=== PATIENT | male | born 1975 | race Caucasian/White ===

== ENCOUNTER 2023-11-23 10:18 | Outpatient (CLI) | payer BC | END 2023-11-23 10:19 | disposition home or self-care (01) | LOC: SCSRAD 10:18 | PROVIDERS: ATTEND Family Medicine | DX: C64.1 Malignant neoplasm of right kidney, except renal pelvis (principal) | CPT/HCPCS: 71046 ==

== ENCOUNTER 2024-09-29 05:17 | Inpatient (IN) | payer BC ==
[2024-09-29 05:49] LABS: #Basophils 0.06 10x3/uL (0.0-0.2); %Basophils 0.8 % (0.0-1.0); %Eosinophils 2.8 % (0.0-10.0); %Lymphocytes 30.6 % (21.0-51.0); %Monocytes 5.1 % (0.0-10.0); %Neutrophils 60.4 % (42.0-75.0); Hemoglobin 16.1 g/dL (14.0-18.0); Mean Corpuscular HGB CONC 34.3 g/dL (32.0-36.0); Mean Corpuscular Hemoglobin 31.1 pg (27.0-31.0); Mean Corpuscular Volume 90.9 fL (78.0-98.0); Platelet Count 246 10x3/uL (130-400); RBC Distribution Width 14.2 % (11.5-14.5); Red Blood Cell (RBC) Count 5.17 mill/uL (4.70-6.10)
[2024-09-29 05:59] LABS: ALT (SGPT) 22 U/L (8-55); AST (SGOT) 22 U/L (5-34); Alkaline Phosphatase 74 U/L (40-110); Anion Gap 14 mmol/L (10-20); BUN (Urea Nitrogen) 8 mg/dL (8.9-20.6); Bilirubin, Total 0.2 mg/dL (0.2-1.2); Calc. Creatinine Clearance 0 mL/min (70-130); Carbon Dioxide 23 mmol/L (22-29); Chloride 102 mmol/L (98-107); Estimated GFR 109; Globulin 3.9 g/dL (2.4-3.5); Glucose 153 mg/dL (70-105); Protein, Total 7.9 g/dL (6.0-8.3); Sodium 135 mmol/L (136-145)
[2024-09-29] MEDS ORDERED: Aspirin Chewable 81 MG TAB ONE ×2 (06:56→06:58)
[2024-09-29] MEDS ORDERED: Nitroglycerin 0.4 MG TAB (25 Tab Bottle) SL PRN ×2 (07:46→12:36)
[2024-09-29] MEDS ORDERED: Acetaminophen 325 MG TAB PO PRN (07:46)
[2024-09-29] MEDS ORDERED: Iopamidol 370 76% 100 ML VIAL ONE (08:43)
[2024-09-29 08:51] LABS: Cardiac Risk 6.8 (Less than 4.5); Cholesterol 218 mg/dl (< 200 Desired); HDL Cholesterol 32 mg/dL (>60 Neg Risk); Triglycerides 632 mg/dL (Less than 150)
[2024-09-29] MEDS ORDERED: Enoxaparin 40 MG (0.4 mL) SYRINGE SC SCH (09:00)
[2024-09-29 09:55] LABS: Troponin I 0.359 ng/mL (< 0.028)
[2024-09-29] MEDS: Enoxaparin 100 MG (1 mL) SYRINGE SC SCH (10:16)
[2024-09-29] MEDS: Famotidine 20 MG TAB PO SCH (10:17)
[2024-09-29] MEDS: Nicotine 14 MG PATCH TD SCH (10:17)
[2024-09-29] MEDS ORDERED: Communication Order-Pharmacy FS SCH (11:00)
[2024-09-29] MEDS ORDERED: Verapamil 5 MG/2 ML VIAL ONE (11:06)
[2024-09-29] MEDS ORDERED: fentaNYL 50 mcg/mL 1 mL Vial ONE (11:06)
[2024-09-29] MEDS ORDERED: Midazolam HCl 2 mg/2 ml Vial ONE (11:06)
[2024-09-29] MEDS ORDERED: Nitroglycerin 50 MG/250 ML BOT 250 ML ONE (11:06)
[2024-09-29] MEDS ORDERED: Heparin 10,000 UNITS/ 10 ML VIAL ONE (11:06)
[2024-09-29 11:57] LABS: Troponin I 0.513 ng/mL (< 0.028)
[2024-09-29] MEDS ORDERED: Acetaminophen/Codeine 30-300mg Tablet PO PRN ×2 (12:36)
[2024-09-29] MEDS ORDERED: Sodium Chloride 0.9% 200 ML IV PRN (12:36)
[2024-09-29] MEDS ORDERED: Metoprolol Tartrate 25 MG TAB PO SCH (12:40)
[2024-09-29 13:50] LABS: Hematocrit 45.9 % (42.0-52.0); Hemoglobin 15.6 g/dL (14.0-18.0); Platelet Count 237 10x3/uL (130-400)
[2024-09-29] MEDS: Metoprolol Tartrate 25 MG TAB PO SCH ×2 (14:02→21:08)
[2024-09-29] MEDS: Nitroglycerin 2% Ointment 1 INCH/1 GM Packet TOP SCH (15:30)
[2024-09-29] MEDS ORDERED: Enoxaparin 100 MG (1 mL) SYRINGE SC SCH (21:00)
[2024-09-29] MEDS: Atorvastatin Calcium 40 MG TAB PO SCH (21:08)
[2024-09-29] MEDS: Heparin 25,000 units/D5W 500 ML IVPB SCH (21:54)
[2024-09-29] MEDS: Heparin 10,000 UNITS/ 10 ML VIAL SLOW IVP SCH (21:55)
[2024-09-30 05:04] LABS: Hemoglobin A1c 5.3 % (4.0-6.0)
[2024-09-30 05:05] LABS: Anion Gap 11 mmol/L (10-20); BUN (Urea Nitrogen) 8 mg/dL (8.9-20.6); Calc. Creatinine Clearance 175 mL/min (70-130); Calcium 8.5 mg/dL (7.8-10.44); Carbon Dioxide 24 mmol/L (22-29); Chloride 106 mmol/L (98-107); Estimated GFR 115; Glucose 107 mg/dL (70-105); Potassium 3.9 mmol/L (3.5-5.1); Sodium 137 mmol/L (136-145)
[2024-09-30] MEDS: Aspirin Chewable 81 MG TAB PO SCH (08:40)
[2024-09-30] MEDS: Ezetimibe 10 MG TAB PO SCH (08:40)
[2024-09-30] MEDS: Losartan 25 MG TAB PO SCH (08:40)
[2024-10-01 02:11] LABS: #Basophils 0.05 10x3/uL (0.0-0.2); %Basophils 0.6 % (0.0-1.0); %Eosinophils 4.1 % (0.0-10.0); %Monocytes 6.3 % (0.0-10.0); %Neutrophils 44.8 % (42.0-75.0); Hematocrit 44.1 % (42.0-52.0); Hematocrit 45.5 % (42.0-52.0); Hemoglobin 14.7 g/dL (14.0-18.0); Hemoglobin 15.3 g/dL (14.0-18.0); Mean Corpuscular HGB CONC 33.3 g/dL (32.0-36.0); Mean Corpuscular Hemoglobin 31.4 pg (27.0-31.0); Mean Corpuscular Volume 94.2 fL (78.0-98.0); Mean Platelet Volume 9.4 fL (7.4-10.4); Platelet Count 228 10x3/uL (130-400); Platelet Count 234 10x3/uL (130-400); RBC Distribution Width 14.3 % (11.5-14.5); Red Blood Cell (RBC) Count 4.68 mill/uL (4.70-6.10)
[2024-10-01 03:15] LABS: Anion Gap 16 mmol/L (10-20); BUN (Urea Nitrogen) 9 mg/dL (8.9-20.6); Calc. Creatinine Clearance 149 mL/min (70-130); Calcium 8.5 mg/dL (7.8-10.44); Carbon Dioxide 18 mmol/L (22-29); Chloride 107 mmol/L (98-107); Estimated GFR 109; Glucose 118 mg/dL (70-105); Potassium 3.8 mmol/L (3.5-5.1); Sodium 137 mmol/L (136-145)
[2024-10-01] MEDS: BENZOCAINE/MENTHOL/ZINC CHLOR 5.1 GM TUBE TOP PRN (11:29)
[2024-10-01 12:31] LABS: Hematocrit 45.8 % (42.0-52.0); Hemoglobin 15.2 g/dL (14.0-18.0); Platelet Count 230 10x3/uL (130-400)
[2024-10-02 04:55] LABS: #Basophils 0.06 10x3/uL (0.0-0.2); %Basophils 0.9 % (0.0-1.0); %Lymphocytes 40.9 % (21.0-51.0); %Monocytes 6.8 % (0.0-10.0); %Neutrophils 47.3 % (42.0-75.0); Hematocrit 41.8 % (42.0-52.0); Hemoglobin 14.1 g/dL (14.0-18.0); Mean Corpuscular HGB CONC 33.7 g/dL (32.0-36.0); Mean Corpuscular Hemoglobin 30.9 pg (27.0-31.0); Mean Corpuscular Volume 91.7 fL (78.0-98.0); Mean Platelet Volume 9.5 fL (7.4-10.4); Platelet Count 237 10x3/uL (130-400); RBC Distribution Width 14.2 % (11.5-14.5); Red Blood Cell (RBC) Count 4.56 mill/uL (4.70-6.10)
[2024-10-02 05:12] LABS: Anion Gap 12 mmol/L (10-20); BUN (Urea Nitrogen) 8 mg/dL (8.9-20.6); Calc. Creatinine Clearance 161 mL/min (70-130); Calcium 8.3 mg/dL (7.8-10.44); Carbon Dioxide 25 mmol/L (22-29); Chloride 108 mmol/L (98-107); Estimated GFR 112; Glucose 97 mg/dL (70-105); Potassium 3.8 mmol/L (3.5-5.1); Sodium 141 mmol/L (136-145)
[2024-10-03 03:53] LABS: #Basophils 0.04 10x3/uL (0.0-0.2); %Basophils 0.5 % (0.0-1.0); %Eosinophils 4.6 % (0.0-10.0); %Monocytes 6.6 % (0.0-10.0); Hematocrit 40.2 % (42.0-52.0); Hemoglobin 13.4 g/dL (14.0-18.0); Mean Corpuscular HGB CONC 33.3 g/dL (32.0-36.0); Mean Corpuscular Hemoglobin 30.9 pg (27.0-31.0); Mean Corpuscular Volume 92.8 fL (78.0-98.0); Platelet Count 222 10x3/uL (130-400); RBC Distribution Width 14.1 % (11.5-14.5); Red Blood Cell (RBC) Count 4.33 mill/uL (4.70-6.10)
[2024-10-03 04:02] LABS: INR-International Normal Ratio 0.9; Prothrombin Time 12.4 sec (12.0-14.7)
[2024-10-03 04:03] LABS: PTT 67.6 sec (22.9-36.1)
[2024-10-03 04:06] LABS: Anion Gap 11 mmol/L (10-20); BUN (Urea Nitrogen) 9 mg/dL (8.9-20.6); Calc. Creatinine Clearance 163 mL/min (70-130); Calcium 8.4 mg/dL (7.8-10.44); Carbon Dioxide 25 mmol/L (22-29); Chloride 108 mmol/L (98-107); Estimated GFR 112; Glucose 98 mg/dL (70-105); Potassium 3.8 mmol/L (3.5-5.1); Sodium 140 mmol/L (136-145)
[2024-10-03] MEDS: guaiFENesin/DM ER PO SCH (09:03)
[2024-10-03] MEDS: Loratadine 10 MG TAB PO PRN (09:04)
[2024-10-03 12:58] LABS: Hematocrit 43.5 % (42.0-52.0); Hemoglobin 14.6 g/dL (14.0-18.0); Platelet Count 229 10x3/uL (130-400)
[2024-10-04] MEDS ORDERED: CABG-Clindamycin/D5W 900 MG in Premix 1 BAG IVPB SCH (00:01)
[2024-10-04 03:48] LABS: #Basophils 0.04 10x3/uL (0.0-0.2); %Basophils 0.5 % (0.0-1.0); %Eosinophils 4.5 % (0.0-10.0); %Lymphocytes 38.9 % (21.0-51.0); %Monocytes 7.9 % (0.0-10.0); %Neutrophils 47.9 % (42.0-75.0); Hematocrit 40.5 % (42.0-52.0); Hemoglobin 13.6 g/dL (14.0-18.0); Mean Corpuscular HGB CONC 33.6 g/dL (32.0-36.0); Mean Corpuscular Hemoglobin 30.9 pg (27.0-31.0); Mean Platelet Volume 9.3 fL (7.4-10.4); Platelet Count 227 10x3/uL (130-400)
[2024-10-04 04:11] LABS: Anion Gap 10 mmol/L (10-20); BUN (Urea Nitrogen) 13 mg/dL (8.9-20.6); Calc. Creatinine Clearance 145 mL/min (70-130); Calcium 8.7 mg/dL (7.8-10.44); Carbon Dioxide 28 mmol/L (22-29); Chloride 106 mmol/L (98-107); Estimated GFR 108; Glucose 105 mg/dL (70-105); Sodium 140 mmol/L (136-145)
[2024-10-04] MEDS ORDERED: Albumin 5% 500 ML ONE (06:29)
[2024-10-04] MEDS ORDERED: EPINEPHrine 1 MG/ML VIAL ONE (06:29)
[2024-10-04] MEDS ORDERED: Dexamethasone 4 mg/ml Vial ONE (06:29)
[2024-10-04] MEDS ORDERED: Bupivacaine PF 0.5% 30 ML VIAL ONE (06:29)
[2024-10-04] MEDS ORDERED: PHENYLEPHRINE-NS 100 MCG/ML 10 ML SYRINGE ONE (06:30)
[2024-10-04] MEDS ORDERED: Heparin 10,000 UNITS/1 ML VIAL 30,000 UNITS in Sodium Chloride 0.9% 1,000 ML FS SCH (06:45)
[2024-10-04] MEDS ORDERED: Lidocaine 1% MPF 2 ML VIAL ONE (07:03)
[2024-10-04] MEDS ORDERED: Midazolam HCl 2 mg/2 ml Vial ONE ×2 (07:03→10:12)
[2024-10-04] MEDS ORDERED: Clindamycin/D5W 900 mg/50 ml Premix Bag ONE (07:10)
[2024-10-04] MEDS ORDERED: Lidocaine 2% PF 5 ML VIAL ONE (07:30)
[2024-10-04] MEDS ORDERED: Rocuronium Bromide 10 MG/ML (10ML VIAL) ONE ×2 (07:30→11:09)
[2024-10-04] MEDS ORDERED: Fentanyl 250 MCG/5 ML VIAL ONE ×2 (07:30→11:28)
[2024-10-04] MEDS ORDERED: PROPOFOL 20 ML ONE ×2 (07:30→11:26)
[2024-10-04] MEDS ORDERED: NOREPINEPHRINE 8 MG/250 ML-D5W 250 ML ONE (07:32)
[2024-10-04] MEDS ORDERED: Vancomycin 1 GM VIAL ONE (07:33)
[2024-10-04] MEDS ORDERED: Thrombin 5000 UNITS/5 ML VIAL ONE (07:33)
[2024-10-04] MEDS ORDERED: Protamine Sulfate 250 MG/25 ML VIAL ONE (07:33)
[2024-10-04] MEDS ORDERED: Sodium Bicarb 50 mEq/50 ML VIAL ONE (07:33)
[2024-10-04] MEDS ORDERED: Mannitol 12.5 GM/50 ML ONE (07:33)
[2024-10-04] MEDS ORDERED: Calcium Chloride 1 GM/10 ML Abboject SYRINGE ONE (07:33)
[2024-10-04] MEDS ORDERED: Lidocaine 2% PF 100 mg/5 ml Syringe ONE (07:33)
[2024-10-04] MEDS ORDERED: Heparin 5,000 UNITS/ML VIAL ONE (07:33)
[2024-10-04] MEDS ORDERED: Potassium Chloride 60 mEq (30 mL) VIAL ONE (07:33)
[2024-10-04] MEDS ORDERED: Heparin 30,000 units/30 ml VIAL ONE (07:33)
[2024-10-04] MEDS ORDERED: Cardioplegic Soln 1,000 ML BAG ONE (07:33)
[2024-10-04] MEDS ORDERED: Papaverine 60 MG/2 ML VIAL ONE ×2 (07:33→08:58)
[2024-10-04] MEDS ORDERED: Magnesium 5 GM/10 ML VIAL ONE (07:33)
[2024-10-04] MEDS ORDERED: Aminocaproic Acid 5 GM/20 ML VIAL ONE (07:33)
[2024-10-04] MEDS ORDERED: ePHEDrine Sulfate 50 MG/10 ML VIAL ONE (07:52)
[2024-10-04] MEDS ORDERED: Sodium Chloride 0.9% 100 ML ONE ×3 (10:54→12:41)
[2024-10-04] MEDS ORDERED: Insulin Regular, Human 100 UNIT/ML 10 ML VIAL ONE (11:10)
[2024-10-04] MEDS ORDERED: Esmolol 100 MG/10 ML VIAL ONE (11:28)
[2024-10-04] MEDS ORDERED: niCARdipine 25 MG/10 ML SDV ONE (11:40)
[2024-10-04] MEDS ORDERED: traMADol HCl 50 MG TAB PO PRN ×2 (12:34)
[2024-10-04] MEDS ORDERED: NOREPINEPHRINE 8 MG/250 ML-D5W 250 ML IVPB PRN (12:34)
[2024-10-04] MEDS ORDERED: Nitroglycerin 50 MG/250 ML BOT 250 ML IVPB PRN (12:34)
[2024-10-04] MEDS ORDERED: Bisacodyl 5 MG TAB PO PRN (12:34)
[2024-10-04] MEDS ORDERED: Albumin 5% 12.5 GM (250 mL) BOT IVPB PRN ×2 (12:34)
[2024-10-04] MEDS ORDERED: Promethazine HCl 25 MG/ML VIAL IM PRN (12:34)
[2024-10-04] MEDS ORDERED: Bisacodyl 10 MG SUPP PR PRN (12:34)
[2024-10-04] MEDS ORDERED: Mag-Al 1200 mg/1200 mg/30 ML UDCUP PO PRN (12:34)
[2024-10-04] MEDS ORDERED: Morphine 2 MG/ML VIAL SLOW IVP PRN (12:34)
[2024-10-04] MEDS ORDERED: Dextrose 5% in Water 1,000 ML IV PRN (13:00)
[2024-10-04] MEDS ORDERED: Glucagon 1 MG/ML KIT SC PRN (13:00)
[2024-10-04] MEDS ORDERED: Dextrose 50% Abboject 50 ML SYRINGE SLOW IVP PRN (13:00)
[2024-10-04 13:12] LABS: Actual Bicarbonate (HCO3a) 22.6 mEq/L (22-28); Base Excess (BEa) -3.8 mEq/L (-2.0 to +3.0); Calcium, Ionized (arterial) 1.15 mmol/L (1.12-1.30); Carboxyhemoglobin (COHb) 0.6 gm% (0.0-3.0); Hematocrit-ABG 39 % (42.0-52.0); Hemoglobin (Hb) 13.4 g/dL (14.0-18.0); O2 Tension (PaO2), arterial 69.9 mmHg (80.0-100.0); pH, Arterial 7.309 (7.35-7.45)
[2024-10-04 13:16] LABS: Puncture Site Arterial Line
[2024-10-04] MEDS: Ipratropium/Albuterol 3 ML NEB NEB SCH (13:17)
[2024-10-04 13:26] LABS: #Basophils 0.03 10x3/uL (0.0-0.2); %Basophils 0.3 % (0.0-1.0); %Eosinophils 0.6 % (0.0-10.0); %Lymphocytes 9.3 % (21.0-51.0); %Monocytes 5.5 % (0.0-10.0); %Neutrophils 83.6 % (42.0-75.0); Hemoglobin 12.5 g/dL (14.0-18.0); Mean Corpuscular HGB CONC 32.9 g/dL (32.0-36.0); Mean Corpuscular Volume 94.3 fL (78.0-98.0); Mean Platelet Volume 9.2 fL (7.4-10.4); Platelet Count 144 10x3/uL (130-400); RBC Distribution Width 14.2 % (11.5-14.5); Red Blood Cell (RBC) Count 4.03 mill/uL (4.70-6.10)
[2024-10-04 13:46] LABS: Calc. Creatinine Clearance 163 mL/min (70-130); Estimated GFR 112
[2024-10-04 13:47] LABS: Anion Gap 9 mmol/L (10-20); BUN (Urea Nitrogen) 11 mg/dL (8.9-20.6); Calcium 7.6 mg/dL (7.8-10.44); Carbon Dioxide 22 mmol/L (22-29); Chloride 114 mmol/L (98-107); Glucose 112 mg/dL (70-105); Potassium 3.9 mmol/L (3.5-5.1); Sodium 141 mmol/L (136-145)
[2024-10-04 13:50] LABS: PTT 30.1 sec (22.9-36.1)
[2024-10-04 14:10] LABS: INR-International Normal Ratio 1.2; Prothrombin Time 15.1 sec (12.0-14.7)
[2024-10-04] MEDS: Magnesium 2 GM/50 ML(in water) 2 GM in Premix 1 BAG IVPB SCH (14:10)
[2024-10-04] MEDS: Clindamycin/D5W 900 MG in Premix 1 BAG IVPB SCH (14:11)
[2024-10-04] MEDS: hydrALAZINE 20 MG/ML VIAL SLOW IVP PRN (14:12)
[2024-10-04] MEDS: niCARdipine 25 MG in Sodium Chloride 0.9% 250 ML 250 ML IVPB PRN (14:26)
[2024-10-04] MEDS: D5 1/2 NS w/20 mEq KCL 1,000 ML IV SCH (14:30)
[2024-10-04] MEDS: Post-Op Insulin Drip Protocol IVPB ONE (14:50)
[2024-10-04 15:51] LABS: Actual Bicarbonate (HCO3a) 20.7 mEq/L (22-28); Base Excess (BEa) -3.6 mEq/L (-2.0 to +3.0); CO2 Tension 35.1 mmHg (35.0-45.0); Calcium, Ionized (arterial) 1.09 mmol/L (1.12-1.30); Carboxyhemoglobin (COHb) 0.8 gm% (0.0-3.0); Hematocrit-ABG 41 % (42.0-52.0); O2 Tension (PaO2), arterial 75.5 mmHg (80.0-100.0); Potassium - ABG Lab 4.04 mmol/L (3.70-5.30); pH, Arterial 7.388 (7.35-7.45)
[2024-10-04 15:58] LABS: ALV-art Gradient 165.825 mmHg (0-20); Puncture Site Arterial Line
[2024-10-04] MEDS: Insulin Regular, Human 100 UNIT/ML 10 ML VIAL SC PRN (16:02)
[2024-10-04] MEDS: Sodium Bicarb 50 MEQ/50 ML Abboject 8.4% SYRINGE ONE (16:18)
[2024-10-04] MEDS: Sodium Bicarb 50 MEQ/50 ML Abboject 8.4% SYRINGE IVP SCH (16:18)
[2024-10-04] MEDS: INSULIN REGULAR IN 0.9 % NACL 100 UNITS in Premix 1 BAG IVPB SCH (16:34)
[2024-10-04] MEDS: fentaNYL 50 mcg/mL 1 mL Vial SLOW IVP PRN ×2 (16:46→23:12)
[2024-10-04] MEDS: INSULIN REGULAR IN 0.9 % NACL 100 ML ONE (16:50)
[2024-10-04] MEDS: Potassium Chloride 20 MEQ (100 mL) BAG IVPB PRN (16:53)
[2024-10-04] MEDS: HYDROcodone/Acetaminophen 5/325 mg Tablet PO PRN (18:01)
[2024-10-04] MEDS: Ondansetron PF 4 MG/2 ML Vial IVP PRN (18:15)
[2024-10-04 19:22] LABS: Hematocrit 39.9 % (42.0-52.0); Hemoglobin 13.4 g/dL (14.0-18.0)
[2024-10-04] MEDS: Famotidine/PF 20 mg/2ml Vial SLOW IVP SCH (19:35)
[2024-10-04] MEDS: Metoprolol Tartrate 25 MG TAB PO SCH (19:36)
[2024-10-04 19:42] LABS: Potassium 4.1 mmol/L (3.5-5.1)
[2024-10-04] MEDS ORDERED: Atorvastatin Calcium 20 MG TAB PO SCH (21:00)
[2024-10-04] MEDS: Transdermal Patch Removal TOP SCH (21:04)
[2024-10-05 04:37] LABS: #Basophils 0.04 10x3/uL (0.0-0.2); %Basophils 0.3 % (0.0-1.0); %Eosinophils 0.7 % (0.0-10.0); %Lymphocytes 4.7 % (21.0-51.0); %Monocytes 6.9 % (0.0-10.0); %Neutrophils 86.9 % (42.0-75.0); Hematocrit 38.3 % (42.0-52.0); Hemoglobin 12.6 g/dL (14.0-18.0); Mean Corpuscular HGB CONC 32.9 g/dL (32.0-36.0); Mean Corpuscular Hemoglobin 30.5 pg (27.0-31.0); Mean Corpuscular Volume 92.7 fL (78.0-98.0); Mean Platelet Volume 9.9 fL (7.4-10.4); Platelet Count 194 10x3/uL (130-400); RBC Distribution Width 14.6 % (11.5-14.5); Red Blood Cell (RBC) Count 4.13 mill/uL (4.70-6.10)
[2024-10-05 05:14] VITALS: BMI 32.3
[2024-10-05 05:39] LABS: Anion Gap 12 mmol/L (10-20); BUN (Urea Nitrogen) 10 mg/dL (8.9-20.6); Calc. Creatinine Clearance 193 mL/min (70-130); Calcium 7.2 mg/dL (7.8-10.44); Carbon Dioxide 19 mmol/L (22-29); Chloride 110 mmol/L (98-107); Estimated GFR 116; Glucose 110 mg/dL (70-105); Sodium 137 mmol/L (136-145)
[2024-10-05] MEDS ORDERED: diphenhydrAMINE 25 MG CAP PO PRN (07:28)
[2024-10-05] MEDS ORDERED: traMADol HCl 50 MG TAB PO PRN (07:28)
[2024-10-05] MEDS ORDERED: Artificial Tear Ophth Sol 15 ML BOT EA EYE PRN (07:28)
[2024-10-05] MEDS ORDERED: Mineral Oil ENEMA PR PRN (07:28)
[2024-10-05] MEDS: Magnesium 2 GM/50 ML(in water) 2 GM in Premix 1 BAG IVPB SCH (09:17)
[2024-10-05] MEDS: Lidocaine 4% Patch TD SCH ×2 (09:17→13:38)
[2024-10-05] MEDS: Senokot S 8.6-50 MG TAB PO SCH (09:19)
[2024-10-05] MEDS: Heparin 5,000 UNITS/ML VIAL SC SCH (09:21)
[2024-10-05] MEDS: Famotidine 20 MG TAB PO SCH (09:22)
[2024-10-05 12:28] VITALS: BMI 32.3
[2024-10-05] MEDS ORDERED: Insulin Glargine 30 UNITS/0.3 ML VIAL SC PRN (12:47)
[2024-10-05] MEDS: Guaifenesin DM 100-10/5 ML UDCUP PO PRN (19:01)
[2024-10-05] MEDS: HYDROcodone/Acetaminophen 5/325 mg Tablet PO PRN (20:07)
[2024-10-06 04:03] LABS: #Basophils 0.07 10x3/uL (0.0-0.2); %Basophils 0.5 % (0.0-1.0); %Eosinophils 0.7 % (0.0-10.0); %Lymphocytes 17.9 % (21.0-51.0); %Monocytes 10.1 % (0.0-10.0); %Neutrophils 70.3 % (42.0-75.0); Hematocrit 34.8 % (42.0-52.0); Hemoglobin 11.3 g/dL (14.0-18.0); Mean Corpuscular HGB CONC 32.5 g/dL (32.0-36.0); Mean Corpuscular Hemoglobin 30.6 pg (27.0-31.0); Mean Corpuscular Volume 94.3 fL (78.0-98.0); Mean Platelet Volume 9.3 fL (7.4-10.4); Platelet Count 167 10x3/uL (130-400); RBC Distribution Width 14.9 % (11.5-14.5); Red Blood Cell (RBC) Count 3.69 mill/uL (4.70-6.10)
[2024-10-06 04:30] LABS: Anion Gap 12 mmol/L (10-20); BUN (Urea Nitrogen) 10 mg/dL (8.9-20.6); Calc. Creatinine Clearance 161 mL/min (70-130); Calcium 8.2 mg/dL (7.8-10.44); Carbon Dioxide 22 mmol/L (22-29); Chloride 102 mmol/L (98-107); Estimated GFR 111; Glucose 115 mg/dL (70-105); Potassium 4.3 mmol/L (3.5-5.1); Sodium 132 mmol/L (136-145)
[2024-10-06] MEDS: traMADol HCl 50 MG TAB PO PRN (06:40)
[2024-10-06] MEDS: Metoprolol Tartrate 25 MG TAB PO SCH (09:04)
[2024-10-06] MEDS: Budesonide 0.25 MG/2 ML NEB INH SCH (18:56)
[2024-10-07 03:57] LABS: #Basophils 0.06 10x3/uL (0.0-0.2); %Basophils 0.5 % (0.0-1.0); %Eosinophils 2.4 % (0.0-10.0); %Lymphocytes 24.6 % (21.0-51.0); %Monocytes 10.9 % (0.0-10.0); %Neutrophils 61.1 % (42.0-75.0); Hematocrit 33.6 % (42.0-52.0); Hemoglobin 11.1 g/dL (14.0-18.0); Mean Corpuscular Hemoglobin 30.8 pg (27.0-31.0); Mean Corpuscular Volume 93.3 fL (78.0-98.0); Mean Platelet Volume 9.6 fL (7.4-10.4); Platelet Count 181 10x3/uL (130-400); RBC Distribution Width 14.2 % (11.5-14.5)
[2024-10-07 04:18] LABS: Anion Gap 13 mmol/L (10-20); BUN (Urea Nitrogen) 11 mg/dL (8.9-20.6); Calc. Creatinine Clearance 153 mL/min (70-130); Carbon Dioxide 25 mmol/L (22-29); Chloride 98 mmol/L (98-107); Potassium 3.7 mmol/L (3.5-5.1); Sodium 132 mmol/L (136-145)
[2024-10-07 04:19] LABS: Calcium 8.3 mg/dL (7.8-10.44); Estimated GFR 110; Glucose 111 mg/dL (70-105); Magnesium 2.1 mg/dL (1.6-2.6)
[2024-10-07 16:02] LABS: Hematocrit 34.4 % (42.0-52.0); Hemoglobin 11.3 g/dL (14.0-18.0); Platelet Count 191 10x3/uL (130-400)
[2024-10-08 02:52] LABS: #Basophils 0.07 10x3/uL (0.0-0.2); %Basophils 0.7 % (0.0-1.0); %Lymphocytes 26.6 % (21.0-51.0); %Monocytes 9.1 % (0.0-10.0); Hematocrit 32.4 % (42.0-52.0); Hemoglobin 10.8 g/dL (14.0-18.0); Mean Corpuscular HGB CONC 33.3 g/dL (32.0-36.0); Mean Corpuscular Hemoglobin 30.9 pg (27.0-31.0); Mean Corpuscular Volume 92.6 fL (78.0-98.0); Mean Platelet Volume 9.6 fL (7.4-10.4); Platelet Count 222 10x3/uL (130-400); RBC Distribution Width 13.8 % (11.5-14.5)
[2024-10-08 03:08] LABS: Anion Gap 13 mmol/L (10-20); BUN (Urea Nitrogen) 10 mg/dL (8.9-20.6); Calc. Creatinine Clearance 152 mL/min (70-130); Calcium 8.7 mg/dL (7.8-10.44); Carbon Dioxide 25 mmol/L (22-29); Chloride 104 mmol/L (98-107); Estimated GFR 109; Glucose 108 mg/dL (70-105); Sodium 138 mmol/L (136-145)
[2024-10-09 04:47] LABS: Anion Gap 13 mmol/L (10-20); BUN (Urea Nitrogen) 10 mg/dL (8.9-20.6); Calc. Creatinine Clearance 139 mL/min (70-130); Calcium 8.7 mg/dL (7.8-10.44); Carbon Dioxide 24 mmol/L (22-29); Chloride 107 mmol/L (98-107); Estimated GFR 106; Glucose 108 mg/dL (70-105); Potassium 3.8 mmol/L (3.5-5.1); Sodium 140 mmol/L (136-145)
[2024-10-09 04:54] LABS: #Basophils 0.05 10x3/uL (0.0-0.2); %Basophils 0.7 % (0.0-1.0); %Eosinophils 6.5 % (0.0-10.0); %Lymphocytes 34.3 % (21.0-51.0); %Neutrophils 48.1 % (42.0-75.0); Hematocrit 32.4 % (42.0-52.0); Hemoglobin 10.8 g/dL (14.0-18.0); Mean Corpuscular HGB CONC 33.3 g/dL (32.0-36.0); Mean Corpuscular Hemoglobin 30.5 pg (27.0-31.0); Mean Corpuscular Volume 91.5 fL (78.0-98.0); Mean Platelet Volume 9.4 fL (7.4-10.4); Platelet Count 268 10x3/uL (130-400); Red Blood Cell (RBC) Count 3.54 mill/uL (4.70-6.10)
[2024-10-09 07:44] VITALS: BP 132/89; TEMP 98.3
[2024-10-09] MEDS ORDERED: HYDROcodone/Acetaminophen 5/325 mg Tablet PO PRN (10:22)
[2024-10-09] MEDS: HYDROcodone/Acetaminophen 5/325 mg Tablet PO PRN (11:56)
== END 2024-10-09 12:40 | disposition home or self-care (01) | DRG 233 ==
LOC: ERS 05:17 → OBS 07:41 → OBSVTOIN 13:30 → PCU 17:49 → CCU 10-04 08:54 → PCU 10-05 22:29
PROVIDERS: ADMIT Internal Medicine; ATTEND Family Medicine
PROC: 4A023N7 Measurement of Cardiac Sampling and Pressure, Left Heart, Percutaneous Approach (ICD-10-PCS; principal; 2024-09-29)
PROC: B2111ZZ Fluoroscopy of Multiple Coronary Arteries using Low Osmolar Contrast (ICD-10-PCS; 2024-09-29)
PROC: 02100Z9 Bypass Coronary Artery, One Artery from Left Internal Mammary, Open Approach (ICD-10-PCS; 2024-10-04)
PROC: 02120AW Bypass Coronary Artery, Three Arteries from Aorta with Autologous Arterial Tissue, Open Approach (ICD-10-PCS; 2024-10-04)
PROC: 06BQ4ZZ Excision of Left Saphenous Vein, Percutaneous Endoscopic Approach (ICD-10-PCS; 2024-10-04)
PROC: 5A1221Z Performance of Cardiac Output, Continuous (ICD-10-PCS; 2024-10-04)
PROC: 4A133R1 Monitoring of Arterial Saturation, Peripheral, Percutaneous Approach (ICD-10-PCS; 2024-10-04)
PROC: 30233J1 Transfusion of Nonautologous Serum Albumin into Peripheral Vein, Percutaneous Approach (ICD-10-PCS; 2024-10-04)
PROC: 02L70CK Occlusion of Left Atrial Appendage with Extraluminal Device, Open Approach (ICD-10-PCS; 2024-10-04)
DX: I21.4 Non-ST elevation (NSTEMI) myocardial infarction (principal); I50.23 Acute on chronic systolic (congestive) heart failure; F17.210 Nicotine dependence, cigarettes, uncomplicated; F10.90 Alcohol use, unspecified, uncomplicated; I25.110 Atherosclerotic heart disease of native coronary artery with unstable angina pectoris; I11.0 Hypertensive heart disease with heart failure; E78.1 Pure hyperglyceridemia; E78.5 Hyperlipidemia, unspecified; Z90.49 Acquired absence of other specified parts of digestive tract; Z82.49 Family history of ischemic heart disease and other diseases of the circulatory system; Z85.528 Personal history of other malignant neoplasm of kidney
CPT/HCPCS: 36415; 36416; 36430; 71045; 80048; 80053; 80061; 82805; 83036; 83735; 84484; 85014; 85018; 85025; 85049; 85610; 85730; 86850; 86900; 86901; 87070; 87205; 93005; 93010; 93306; 93458; 93798; 94002; 94150; 94640; 94760; 96372; 96374; 96376; 97139; 99152; 99153; A4311; A4648; C1713; C1751; C1894; G0378; J0171; J0360; J0665; J1100; J1642; J1643; J1644; J1650; J1815; J2003; J2150; J2250; J2405; J2440; J2704; J2720; J3010; J3370; J3475; J3480; J3490; J7030; J7050; J7620; J7626; P9045; Q9967; S0017

== ENCOUNTER 2024-10-25 04:27 | Emergency (ER) | payer BC ==
[2024-10-25 05:22] LABS: #Basophils 0.09 10x3/uL (0.0-0.2); %Lymphocytes 32.6 % (21.0-51.0); %Monocytes 7.4 % (0.0-10.0); %Neutrophils 53.7 % (42.0-75.0); Hematocrit 37.8 % (42.0-52.0); Hemoglobin 12.5 g/dL (14.0-18.0); Mean Corpuscular HGB CONC 33.1 g/dL (32.0-36.0); Mean Corpuscular Volume 90.9 fL (78.0-98.0); Mean Platelet Volume 8.2 fL (7.4-10.4); Platelet Count 461 10x3/uL (130-400); RBC Distribution Width 13.7 % (11.5-14.5); Red Blood Cell (RBC) Count 4.16 mill/uL (4.70-6.10)
[2024-10-25 05:35] LABS: Anion Gap 16 mmol/L (10-20); Carbon Dioxide 24 mmol/L (22-29); Chloride 104 mmol/L (98-107); Potassium 3.9 mmol/L (3.5-5.1); Sodium 140 mmol/L (136-145)
[2024-10-25 05:36] LABS: ALT (SGPT) 24 U/L (Less than 45); AST (SGOT) 26 U/L (11-34); Albumin 4.2 g/dL (3.1-4.5); Alkaline Phosphatase 105 U/L (40-110); BUN (Urea Nitrogen) 14 mg/dL (8.9-20.6); Bilirubin, Total 0.6 mg/dL (0.3-1.2); Calc. Creatinine Clearance 0 mL/min (70-130); Calcium 9.3 mg/dL (7.8-10.44); Estimated GFR 108; Globulin 3.4 g/dL (2.4-3.5); Glucose 103 mg/dL (70-105); Protein, Total 7.6 g/dL (6.0-8.3)
[2024-10-25 05:39] LABS: Troponin I 0.149 ng/mL (< 0.028)
[2024-10-25] MEDS ORDERED: Iopamidol 370 76% 100 ML VIAL ONE (10:47)
== END 2024-10-25 08:03 | disposition home or self-care (01) ==
LOC: ERS 04:27
DX: R07.9 Chest pain, unspecified (principal); I10 Essential (primary) hypertension; I25.2 Old myocardial infarction; F17.210 Nicotine dependence, cigarettes, uncomplicated
CPT/HCPCS: 71045; 71275; 80053; 84484; 85025; 93005; Q9967